=== PATIENT | male | born 1975 | race Caucasian/White ===

== ENCOUNTER 2018-03-27 05:48 | Inpatient (IN) | payer OTHER ==
[~2018-03-27] VITALS: Ht 180.3 cm; Wt 112.7 kg
[~2018-03-27 05:48] MED LIST: ALPR0.5T8 PO; DULO60CA44 PO; HYDR-4061 PO
[2018-03-27] MEDS ORDERED: CeFAZolin 2 GM/DEXTROSE 50 ML IV ONE ×2 (06:00→06:02)
[2018-03-27] MEDS ORDERED: RINGERS SOLUTION,LACTATED 1,000 ML IV ONE ×3 (06:00→11:37)
[2018-03-27] MEDS ORDERED: THROMBIN, BOVINE 20000 UNITS/VIAL POWDER TP ONE (06:50)
[2018-03-27] MEDS ORDERED: SODIUM CHLORIDE 0.9% 10 ML ONE (06:51)
[2018-03-27] MEDS ORDERED: SODIUM CHLORIDE 0.9% 250 ML IV ONE (06:51)
[2018-03-27] MEDS ORDERED: GELATIN SPONGE,ABSORBABLE 100 MM TP ONE ×2 (06:58→07:24)
[2018-03-27] MEDS ORDERED: BUPIVACAINE LIPOSOME/PF 1.3%-13.3MG/ML SUSPENSION 20 ML VIAL INJ ONE (07:00)
[2018-03-27] MEDS: ACETAMINOPHEN 1000 MG/ISO-OSM 100 ML IV SCH ×3 (08:45→20:43)
[2018-03-27] MEDS ORDERED: MEPERIDINE HCL/PF 25 MG/0.5 ML AMP IVP PRN (08:45)
[2018-03-27] MEDS ORDERED: FentaNYL CITRATE-PF 100 MCG/2 ML VIAL IVP PRN (08:45)
[2018-03-27] MEDS ORDERED: ONDANSETRON HCL 4 MG/2 ML VIAL IVP PRN ×2 (08:45→11:15)
[2018-03-27] MEDS: BACITRACIN 50,000 UNITS/VIAL ONE ×2 (08:46→09:12)
[2018-03-27] MEDS: BUPIVACAINE HCL/PF 0.25% 30 ML VIAL ONE ×2 (08:50→09:16)
[2018-03-27] MEDS ORDERED: RINGERS SOLUTION,LACTATED 1,000 ML IV SCH (11:15)
[2018-03-27] MEDS ORDERED: MAG HYDROX/AL HYDROX/SIMETH 30 ML SUSP UDCUP PO PRN (11:15)
[2018-03-27] MEDS ORDERED: ACETAMINOPHEN 325 MG TABLET PO PRN (11:15)
[2018-03-27] MEDS ORDERED: HYDROmorphone 2 MG/ML SYRINGE ONE (11:21)
[2018-03-27] MEDS: HYDROmorphone 2 MG/ML SYRINGE IVP PRN ×6 (11:23→23:18)
[2018-03-27] MEDS ORDERED: MEPERIDINE HCL/PF 25 MG/0.5 ML AMP ONE (11:30)
[2018-03-27] MEDS ORDERED: FentaNYL CITRATE-PF 100 MCG/2 ML VIAL ONE (11:55)
[2018-03-27 12:28] VITALS: BP 102/68
[2018-03-27] MEDS: BISACODYL 5 MG EC TABLET PO SCH (12:51)
[2018-03-27] MEDS: CYCLOBENZAPRINE HCL 10 MG TABLET PO SCH ×4 (12:51→20:43)
[2018-03-27] MEDS: OXYGEN THERAPY IH SCH (12:52)
[2018-03-27 14:19] VITALS: BP 102/68
[2018-03-27 16:06] VITALS: BP 95/38
[2018-03-27] MEDS: CeFAZolin 1 GM/DEXTROSE 50 ML IV SCH ×2 (16:23→23:18)
[2018-03-27 17:33] VITALS: BP 91/53
[2018-03-27 19:35] VITALS: BP 112/68
[2018-03-27] MEDS ORDERED: OXYGEN THERAPY IH SCH (20:00)
[2018-03-27] MEDS: DOCUSATE SODIUM 100 MG CAPSULE PO SCH (20:44)
[2018-03-27 23:30] VITALS: BP 109/55
[2018-03-28] MEDS: ACETAMINOPHEN 1000 MG/ISO-OSM 100 ML IV SCH (02:20)
[2018-03-28] MEDS: HYDROmorphone 2 MG/ML SYRINGE IVP PRN (04:10)
[2018-03-28 04:16] VITALS: BP 149/53
[2018-03-28] MEDS ORDERED: METOCLOPRAMIDE HCL 5 MG/ML 2 ML VIAL IVP ONE (05:27)
[2018-03-28] MEDS ORDERED: LIDOCAINE/PF 2% 5 ML VIAL IM ONE (05:27)
[2018-03-28] MEDS ORDERED: SUCCINYLCHOLINE CHLORIDE 20 MG/ML 10 ML VIAL IVP ONE (05:27)
[2018-03-28] MEDS ORDERED: PHENYLEPHRINE HCL 10 MG/ML VIAL IVP ONE (05:27)
[2018-03-28] MEDS ORDERED: ONDANSETRON HCL 4 MG/2 ML VIAL IVP ONE (05:27)
[2018-03-28] MEDS ORDERED: GLYCOPYRROLATE 0.2 MG/ML VIAL IM ONE (05:27)
[2018-03-28] MEDS ORDERED: ROCURONIUM BROMIDE 10 MG/ML 5 ML VIAL IVP ONE (05:27)
[2018-03-28] MEDS ORDERED: NEOSTIGMINE METHYLSULFATE 1 MG/ML 10 ML VIAL IVP ONE (05:27)
[2018-03-28] MEDS ORDERED: DEXAMETHASONE SOD PHOS 4 MG/ML VIAL IVP ONE (05:27)
[2018-03-28 05:37] LABS: BASOPHILS % (AUTO) 0.1 % (0.0-2.0); EOSINOPHILS % (AUTO) 0 % (1.0-6.0); HEMATOCRIT 38.2 % (41-53); HEMOGLOBIN 13.3 g/dL (13.5-17.5); LYMPHOCYTES # (AUTO) 1.9 K/uL (1.0-4.8); LYMPHOCYTES % (AUTO) 11.4 % (22.0-44.0); MEAN CORPUSCULAR HEMOGLOBIN 31.4 pg (26.0-34.0); MEAN CORPUSCULAR HGB CONC 34.8 G/dL (31.0-37.0); MEAN CORPUSCULAR VOLUME 90 fL (80-100); MONOCYTES # (AUTO) 1.6 K/uL (0.1-1.0); MONOCYTES % (AUTO) 9.5 % (2.0-9.0); NEUTROPHILS # (AUTO) 13.2 K/uL (1.8-7.7); PLATELET COUNT (AUTO) 164 K/uL (150-450); RED BLOOD CELL COUNT(AUTO) 4.24 MIL/uL (4.50-5.90); RED CELL DISTRIBUTION WIDTH 12.9 % (11.5-14.5)
[2018-03-28] MEDS ORDERED: KETAMINE HCL 50 MG/ML 10 ML VIAL IVP ONE (05:41)
[2018-03-28] MEDS ORDERED: MIDAZOLAM HCL 2 MG/2 ML VIAL IVP ONE (05:41)
[2018-03-28 05:51] LABS: ANION GAP 5 mmol/L (8-16); CALCIUM, TOTAL 8.4 mg/dL (8.8-10.5); CARBON DIOXIDE 30 mmol/L (22-29); CHLORIDE 103 mmol/L (98-107); CREATININE 0.96 mg/dL (0.60-1.30); GLOMERULAR FILTR. RATE CALC > 60 mL/min (>60); GLUCOSE,RANDOM 144 mg/dL (70-110); POTASSIUM 3.7 mmol/L (3.5-5.1); SODIUM SERUM 138 mmol/L (136-145); UREA NITROGEN, BLOOD 14 mg/dL (7-18)
[2018-03-28] MEDS ORDERED: PROPOFOL 1% ISO-OSM 1000 MG/100 ML BOTTLE IV ONE (05:52)
[2018-03-28] MEDS: OXYGEN THERAPY IH SCH (08:00)
[2018-03-28 08:21] VITALS: BP_SYST 84; BP_DIAS 46; BP_DIAS 86
[2018-03-28] MEDS: DOCUSATE SODIUM 100 MG CAPSULE PO SCH (08:52)
[2018-03-28] MEDS: BISACODYL 5 MG EC TABLET PO SCH (08:52)
[2018-03-28] MEDS: CYCLOBENZAPRINE HCL 10 MG TABLET PO SCH (08:53)
[2018-03-28] MEDS ORDERED: DULoxetine HCL 60 MG CAPSULE PO SCH (09:00)
[2018-03-28 09:06] VITALS: BP 104/57
[2018-03-28] MEDS ORDERED: OxyCODONE HCL/ACETAMINOPHEN 10-325 MG TABLET PO ONE (09:15)
[2018-03-28] MEDS ORDERED: OXYC-43 PO (09:28)
[2018-03-28] MEDS ORDERED: CEPH500 PO (09:28)
[2018-03-28] MEDS ORDERED: CYCL10 PO (09:30)
[2018-03-28] MEDS ORDERED: ONDA4 PO (09:31)
== END 2018-03-28 11:42 | disposition home or self-care (01) | DRG 455 ==
LOC: 4E 05:48
PROVIDERS: ADMIT Neurological Surgery; ATTEND Neurological Surgery
PROC: 0SG30AJ Fusion of Lumbosacral Joint with Interbody Fusion Device, Posterior Approach, Anterior Column, Open Approach (ICD-10-PCS; 2018-03-27)
PROC: 0SB40ZZ Excision of Lumbosacral Disc, Open Approach (ICD-10-PCS; 2018-03-27)
PROC: 4A11X4G Monitoring of Peripheral Nervous Electrical Activity, Intraoperative, External Approach (ICD-10-PCS; 2018-03-27)
PROC: 01NB0ZZ Release Lumbar Nerve, Open Approach (ICD-10-PCS; 2018-03-27)
PROC: 01NR0ZZ Release Sacral Nerve, Open Approach (ICD-10-PCS; 2018-03-27)
PROC: 0SG30J1 Fusion of Lumbosacral Joint with Synthetic Substitute, Posterior Approach, Posterior Column, Open Approach (ICD-10-PCS; principal; 2018-03-27 07:30)
DX: M51.17 Intervertebral disc disorders with radiculopathy, lumbosacral region (principal); M43.17 Spondylolisthesis, lumbosacral region; M53.2X7 Spinal instabilities, lumbosacral region; M51.27 Other intervertebral disc displacement, lumbosacral region; M48.061 Spinal stenosis, lumbar region without neurogenic claudication; G43.909 Migraine, unspecified, not intractable, without status migrainosus
CPT/HCPCS: 86850; 86900; 86901; 87081; 88300; 97161; 97165; 97530; 97535; C1713; C9290; G0238; J0131; J0330; J0690; J1030; J1100; J1170; J2250; J2370; J2405; J2704; J2765; J3010; J3490; J7050; J7120